=== PATIENT | male | born 1985 | race Caucasian/White ===

== ENCOUNTER 2016-09-24 22:51 | Emergency (ER) | payer MEDICAID ==
[~2016-09-24] VITALS: Ht 188 cm; Wt 64.3 kg
[2016-09-24] MEDS ORDERED: SPIR100T2 PO (23:48)
[2016-09-24] MEDS ORDERED: ESTR2TAB PO (23:49)
[2016-09-25 00:32] LABS: BLOOD UREA NITROGEN 14 mg/dL (7-18)
[2016-09-25 02:41] VITALS: BP 94/59
== END 2016-09-25 03:16 | disposition home or self-care (01) ==
LOC: ED 23:59
DX: R31.0 Gross hematuria (principal)
CPT/HCPCS: 36415; 76770; 80048; 81001; 85025; 87086; 99285